=== PATIENT | male | born 1975 | race Two or more races ===

== ENCOUNTER 2024-10-22 22:09 | Emergency (ER) | payer OTHER ==
[~2024-10-22] VITALS: Ht 170.2 cm; Wt 118.2 kg
--- NOTE | 2024-10-22 22:22 | ED.PDOC ---
HPI Comments 49 year old male presents to the ED via EMS with a chief complaint of hypertension onset today. Patient was at [facility], BP was 248/130, was experiencing blurred vision, headache, palpitations and chest pressure, was brought to ED for retirement check. Patient states he has a PMHx HTN, is not complaint with medication. Upon ED arrival BP was 193/123. Denies fever, chills, nausea, vomiting, diarrhea, shortness of breath, dysuria, dizziness. No other symptoms or modifying factors present at this time. Chief Complaint: High Blood Pressure Time Seen by MD: 22:18 Reviewed Notes: Medications, Allergies Allergies: Coded Allergies: NO KNOWN ALLERGIES (Unverified , 10/22/24) Home Meds Active Scripts Hydralazine Hcl (Hydralazine Hcl) 25 Mg Tab, 25 MG PO BID for 90 Days, #180 TAB 3 Refills Prov:BYRON PULIDO MD 10/22/24 Information Source: Patient, Emergency Med Personnel Mode of Arrival: EMS Severity: Moderate Timing: Hours Duration: Since onset Prehospital treatment: None Quality: Pressure Onset: At Rest Cardiac Risk Factors: HTN PE Risk Factors: None History of: None Modifying Factors: Nothing Associated Signs and Symptoms: Palpitations Past Medical History PAST MEDICAL HISTORY: HTN Surgical History: Denies all surgeries Family History Family History: Reviewed,noncontributory to illness, No family hx of Cancer, No family hx of DM, No family hx of Heart priyank, No family hx of HTN, No family hx ofKidney priyank, No family hx of Liver priyank, No family hx of Lung priyank, No family hx of Stroke Social History Smoker: Non-Smoker Alcohol: Denies ETOH Use Drugs: Denies Drug Use Lives In: Home Constitutional: denies: chills, diaphoresis, fatigue, fever, malaise, sweats, weakness, others EENTM: reports: blurred vision; denies: double vision, ear bleeding, ear discharge, ear drainage, ear pain, ear ringing, eye pain, eye redness, hearing loss, mouth pain, mouth swelling, nasal discharge, nose bleeding, nose congestion, nose pain, photophobia, tearing, throat pain, throat swelling, voice changes, others Respiratory: denies: cough, hemoptysis, orthopnea, SOB at rest, shortness of breath, SOB with excertion, stridor, wheezing, others Cardiovascular: reports: chest pain, palpitations; denies: dizzy spells, diaphoresis, Dyspnea on exertion, edema, irregular heart beat, left arm pain, lightheadedness, PND, syncope, others Gastrointestinal: denies: abdomen distended, abdominal pain, blood streaked bowels, constipated, diarrhea, dysphagia, difficulty swallowing, hematemesis, melena, nausea, poor appetite, poor fluid intake, rectal bleeding, rectal pain, vomiting, others Genitourinary: denies: burning, dysuria, flank pain, frequency, hematuria, incontinence, penile discharge, penile sore, pain, testicle pain, testicle swelling, urgency, others Neurological: denies: dizziness, fainting, headache, left sided numbness, left sided weakness, numbness, paresthesia, pre-existing deficit, right sided numbness, right sided weakness, seizure, speech problems, tingling, tremors, weakness, others Musculoskeletal: denies: back pain, gout, joint pain, joint swelling, muscle pain, muscle stiffness, neck pain, others Integumetry: denies: bruises, change in color, change in hair/nails, dryness, laceration, lesions, lumps, rash, wounds, others Allergic/Immunocompromised: denies: Difficulty Healing, Frequent Infections, Hives, Itching, others Hematologic/Lymphatic: denies: anemia, blood clots, easy bleeding, easy bru ising, swollen glands, others Endocrine: denies: excessive hunger, excessive sweating, excessive thirst, e xcessive urination, flushing, intolerance to cold, intolerance to heat, unexplained weight gain, unexplained weight loss, others Psychiatric: denies: anxiety, bipolar disorder, depression, hopeless, panic disorder, schizophrenia, sleepless, suicidal, others All Other Systems: Reviewed and Negative Physical Exam General Appearance: No Apparent Distress, Normal HEENT: Normal ENT Inspection, Pharynx Normal, TMs Normal Neck: Full Range of Motion, Non-Tender, Normal, Normal Inspection Respiratory: Chest Non-Tender, Lungs Clear, No Accessory Muscle Use, No Respiratory Distress, Normal Breath Sounds Cardiovascular: No Edema, No JVD, No Murmur, No Gallop, Normal Peripheral Pulses, Regular Rate/Rhythm Breast Exam: Deferred Gastrointestinal: No Organomegaly, Non Tender, No Pulsatile Mass, Normal Bowel Sounds, Soft Genitalia: Deferred Pelvic: Deferred Rectal: Deferred Extremities: No calf tenderness, Normal capillary refill, Normal inspection, Normal range of motion, Non-tender, No pedal edema Musculoskeletal : Apperance: Normal Neurologic: Alert, 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 Was a procedure done?: No CP Differential Dx Differential Diagnosis: A-fib, A-Flutter, Angina, Electrolyte Disorder, Heart Failure, PA, Ventricular Dysrhythmia, Other X-Ray, Labs, Meds, VS Vital Signs Date Time Temp Pulse Resp B/P (MAP) Pulse Ox O2 Delivery O2 Flow Rate FiO2 10/23/24 03:59 160/113 10/23/24 03:06 210/161 10/23/24 02:00 80 18 211/143 (165) 97 10/22/24 23:06 78 16 213/129 (157) 98 10/22/24 23:05 213/129 10/22/24 22:15 98.8 60 18 193/123 98 98.8 10/22/24 22:11 65 Lab Test 10/22/24 22:29 Range/Units White Blood Count 6.1 4.4-10.8 10^3/uL Red Blood Count 4.68 4.5-5.90 10^6/uL Hemoglobin 15.2 13.5-17.5 g/dL Hematocrit 44.8 41.0-53.0 % Mean Corpuscular Volume 95.7 80.0-100.0 fL Mean Corpuscular Hemoglobin 32.5 H 28.0-32.0 pg Mean Corpuscular Hemoglobin Concent 34.0 32.0-36.0 g/dL Red Cell Distribution Width 13.4 11.8-14.3 % Platelet Count 326 140-450 10^3/uL Mean Platelet Volume 7.8 6.9-10.8 fL Neutrophils (%) (Auto) 62.3 37.0-80.0 % Lymphocytes (%) (Auto) 29.2 10.0-50.0 % Monocytes (%) (Auto) 6.4 0.0-12.0 % Eosinophils (%) (Auto) 1.0 0.0-7.0 % Basophils (%) (Auto) 1.1 0.0-2.0 % Neutrophils # (Auto) 3.8 1.6-8.6 10 ^3/uL Lymphocytes # (Auto) 1.8 0.4-5.4 10 ^3/uL Monocytes # (Auto) 0.4 0-1.3 10 ^3/uL Eosinophils # (Auto) 0.1 0-0.8 10 ^3/uL Basophils # (Auto) 0.1 0-0.2 10 ^3/uL Nucleated Red Blood Cells 0.1 % Sodium Level 139 136-145 mmol/L Potassium Level 3.6 3.5-5.1 mmol/L Chloride Level 104 98-107 mmol/L Carbon Dioxide Level 25 20-31 mmol/L Anion Gap 10 5-15 Blood Urea Nitrogen 8 L 9-23 mg/dL Creatinine 0.82 0.700-1.30 mg/dL Glomerular Filtration Rate Calc 108 >90 mL/min BUN/Creatinine Ratio 9.8 L 10.0-20.0 Serum Glucose 94 74-106 mg/dL Calcium Level 9.3 8.7-10.4 mg/dL Magnesium Level 1.8 1.6-2.6 mg/dL Total Bilirubin 0.7 0.2-1.0 mg/dL Aspartate Amino Transferase (AST) 31 13-40 U/L Alanine Aminotransferase (ALT) 22 7-40 U/L Alkaline Phosphatase 49 46-116 U/L Troponin I High Sensitivity 10 </=54 ng/L Total Protein 8.3 H 5.7-8.2 g/dL Albumin 4.5 3.2-4.8 g/dL Current Medications Medications (Trade) Dose Ordered Sig/Ronald Route Start Time Stop Time Status Last Admin Hydralazine HCl (Apresoline Tablet) 50 mg ONCE ONCE PO 10/22/24 22:30 10/22/24 22:31 DC 10/22/24 23:05 Clonidine HCl (Catapres Tablet) 0.2 mg ONCE ONCE PO 10/23/24 02:15 10/23/24 02:16 DC 10/23/24 03:06 Hydralazine HCl (Apresoline Tablet) 50 mg ONCE ONCE PO 10/23/24 03:30 10/23/24 03:31 DC 10/23/24 03:59 Time of 1ST Reevaluation: 22:48 Reevaluation 1ST: Unchanged Patient Education/Counseling: Diagnosis, Treatment, Prognosis Family Education/Counseling: No Family Present SEPSIS Sepsis Screen Vital Signs Date Time Temp Pulse Resp B/P (MAP) Pulse Ox O2 Delivery O2 Flow Rate FiO2 10/23/24 03:59 160/113 10/23/24 03:06 210/161 10/23/24 02:00 80 18 211/143 (165) 97 10/22/24 23:06 78 16 213/129 (157) 98 10/22/24 23:05 213/129 10/22/24 22:15 98.8 60 18 193/123 98 98.8 10/22/24 22:11 65 Laboratory Tests Test 10/22/24 22:29 White Blood Count 6.1 10^3/uL (4.4-10.8) Medications Medications Dose Ordered Sig/Ronald Route Start Time Stop Time Status Last Admin Dose Admin Clonidine HCl 0.2 mg ONCE ONCE PO 10/23/24 02:15 10/23/24 02:16 DC 10/23/24 03:06 Hydralazine HCl 50 mg ONCE ONCE PO 10/22/24 22:30 10/22/24 22:31 DC 10/22/24 23:05 Hydralazine HCl 50 mg ONCE ONCE PO 10/23/24 03:30 10/23/24 03:31 DC 10/23/24 03:59 Departure 1 Departure Time of Disposition: 00:30 Impression: Primary Impression: Hypertensive urgency Disposition: 01 HOME / SELF CARE / HOMELESS Condition: Stable e-Prescriptions Hydralazine Hcl (Hydralazine Hcl) 25 Mg Tab 25 MG PO BID for 90 Days, #180 TAB 3 Refills Prov: BYRON PULIDO MD 10/22/24 Discharged With: Self Critical Care Note Critical Care Time?: No Stability Stability form required: No Heart Score Heart Score: Heart Score Response (Comments) Value History Slightly Suspicious 0 EKG Normal 0 Age 45-64 1 Risk Factors 1 or 2 risk factors 1 Troponin Normal limit 0 Total 2 I personally scribed for BYRON PULIDO MD ([email or web address]) on 10/22/24 at 22:22. Electronically submitted by Rosibel Montgomery ([email or web address]). I personally scribed for BYRON PULIDO MD ([email or web address]) on 10/22/24 at 22:41. Electronically submitted by Rosibel Montgomery ([email or web address]). BYRON PULIDO MD Oct 22, 2024 22:22
[2024-10-22 22:37] LABS: Hematocrit 44.8 % (41.0-53.0); Hemoglobin 15.2 g/dL (13.5-17.5); Mean Corpuscular Hemoglobin 32.5 pg (28.0-32.0); Mean Corpuscular Volume 95.7 fL (80.0-100.0); Nucleated Red Blood Cells % 0.1 %
[2024-10-22 22:53] LABS: Alanine Aminotransferase 22 U/L (7-40); Albumin 4.5 g/dL (3.2-4.8); Alkaline Phosphatase 49 U/L (46-116); Anion Gap 10 (5-15); BUN/Creatinine Ratio 9.8 (10.0-20.0); Calcium 9.3 mg/dL (8.7-10.4); Carbon Dioxide 25 mmol/L (20-31); Chloride 104 mmol/L (98-107); Glucose 94 mg/dL (74-106); Magnesium 1.8 mg/dL (1.6-2.6); Potassium 3.6 mmol/L (3.5-5.1); Sodium 139 mmol/L (136-145)
[2024-10-22 22:54] LABS: Bilirubin, Total 0.7 mg/dL (0.2-1.0)
[2024-10-22 22:59] LABS: Blood Urea Nitrogen 8 mg/dL (9-23); Total Protein 8.3 g/dL (5.7-8.2)
--- NOTE | 2024-10-22 23:56 | ECG ---
[facility] Test Date: 2024-10-22 Test Time: 22:11:15 Pat Name: DANIELA KHOURY Department: [facility] ED Patient ID: [facility]-[id number] Room: Gender: M Vendor Management Associate: melia : 1975 Requested By: BYRON PULIDO Order Number: [id number] Reading MD: Elie Mota Measurements Intervals [place] Rate: 65 P: 46 MD: 157 QRS: -31 QRSD: 96 T: 38 QT: 432 QTc: 450 Interpretive Statements Sinus rhythm Abnormal R-wave progression, late transition Left ventricular hypertrophy Electronically Signed On 10-23-2024 17:03:06 PDT by Elie Mota Please click the below link to view image of tracing.
[2024-10-22] MEDS ORDERED: HYDR25TA88 PO (23:59)
[2024-10-23 04:50] VITALS: BP 160/103; PULSE 81; RESP 18; TEMP 98.2; O2SAT 98
== END 2024-10-23 04:59 | disposition home or self-care (01) ==
LOC: EEVIPCON 22:09 → EDBD 22:09 → ER 22:09
DX: I16.0 Hypertensive urgency (principal); Z79.899 Other long term (current) drug therapy
CPT/HCPCS: 36415; 80053; 83735; 84484; 85025; 93005